=== PATIENT | female | born 1980 | race Caucasian/White ===

== ENCOUNTER 2018-05-13 15:32 | Outpatient (CLI) | payer MEDICAID ==
--- NOTE | 2018-05-13 16:50 | ULT ---
PELVIC SONOGRAM TRANSABDOMINAL AND TRANSVAGINAL IMAGING WITH DUPLEX EVALUATION: 05/13/18 HISTORY: Pelvic pain. FINDINGS: Urinary bladder is unremarkable. Uterus has a heterogeneous echotexture and is 8.8 cm. Endometrium is 0.4 cm. Minimal free fluid. The right ovary is 2.9 cm and the left 2.6 cm. Each has a normal appearance with good color and spect ral doppler flow. IMPRESSION: Normal pelvic sonogram. POS: TINY
== END 2018-05-13 15:33 | disposition home or self-care (01) ==
LOC: BICULT 15:32
PROVIDERS: ATTEND Family Medicine
DX: R10.2 Pelvic and perineal pain (principal)
CPT/HCPCS: 76856

== ENCOUNTER 2020-07-23 16:26 | Inpatient (IN) | payer SELFPAY ==
[2020-07-23] MEDS ORDERED: Ondansetron PF 4 MG/2 ML Vial IVP PRN (21:44)
[2020-07-23] MEDS ORDERED: Ondansetron ODT 4 MG TAB PO PRN (21:44)
[2020-07-23] MEDS ORDERED: hydrALAZINE 20 MG/ML VIAL SLOW IVP PRN (21:44)
[2020-07-23] MEDS ORDERED: Acetaminophen 500 MG TAB PO PRN (21:44)
[2020-07-23] MEDS ORDERED: Famotidine 20 MG TAB PO SCH ×2 (22:00→22:15)
[2020-07-23] MEDS ORDERED: Atorvastatin Calcium 40 MG TAB PO SCH ×2 (22:00→22:15)
[2020-07-23] MEDS ORDERED: Warfarin Sodium 10 MG TAB PO SCH ×2 (22:00→22:15)
[2020-07-23 22:03] VITALS: BMI 32.3
[2020-07-23] MEDS ORDERED: Famotidine 20 MG TAB ONE (22:19)
[2020-07-24 05:02] LABS: #Basophils 0.1 thou/uL (0.0-0.2); #Eosinphils 0.4 thou/uL (0.0-0.7); #Lymphocytes 2.4 thou/uL (1.20-3.40); #Monocytes 0.8 thou/uL (0.11-0.59); #Neutrophils 4.4 thou/uL (1.40-6.50); %Basophils 0.7 % (0.0-1.0); %Eosinophils 4.6 % (0.0-10.0); %Lymphocytes 29.7 % (21.0-51.0); %Neutrophils 54.9 % (42.0-75.0); Hemoglobin 13.8 g/dL (12.0-16.0); Mean Corpuscular HGB CONC 32.5 g/dL (32.0-36.0); Mean Corpuscular Hemoglobin 29.7 pg (27.0-31.0); Mean Corpuscular Volume 91.2 fL (78.0-98.0); Mean Platelet Volume 6.4 fL (7.4-10.4); Platelet Count 323 thou/uL (130-400); RBC Distribution Width 12.8 % (11.5-14.5); Red Blood Cell (RBC) Count 4.64 mill/uL (4.20-5.40)
[2020-07-24 05:23] LABS: ALT (SGPT) 12 U/L (8-55); AST (SGOT) 13 U/L (5-34); Albumin 3.4 g/dL (3.5-5.0); Alkaline Phosphatase 59 U/L (40-110); Anion Gap 12 mmol/L (10-20); BUN (Urea Nitrogen) 17 mg/dL (7.0-18.7); Bilirubin, Total 0.2 mg/dL (0.2-1.2); Calc. Creatinine Clearance 125 mL/min (70-130); Calcium 8.9 mg/dL (7.8-10.44); Carbon Dioxide 22 mmol/L (22-29); Cardiac Risk 4.4 (Less than 4.5); Chloride 105 mmol/L (98-107); Cholesterol 218 mg/dl (< 200 Desired); Globulin 2.9 g/dL (2.4-3.5); Glucose 104 mg/dL (70-105); HDL Cholesterol 50 mg/dL (>60 Neg Risk); LDL Cholesterol, Calculated 147 mg/dL; Potassium 4.4 mmol/L (3.5-5.1); Protein, Total 6.3 g/dL (6.0-8.3); Sodium 135 mmol/L (136-145); Triglycerides 104 mg/dL (Less than 150)
[2020-07-24 07:02] LABS: SARS-CoV-2 PCR by NAA Not Detected (NotDetected)
[2020-07-24] MEDS ORDERED: Aspirin Chewable 81 MG TAB ONE (08:01)
[2020-07-24] MEDS ORDERED: Famotidine 20 MG TAB ONE (08:01)
[2020-07-24] MEDS: Aspirin 81 mg Enteric Coated Tablet PO SCH (08:04)
[2020-07-24] MEDS: Famotidine 20 MG TAB PO SCH ×2 (08:04→21:26)
[2020-07-24] MEDS ORDERED: Lorazepam 2 MG/ML VIAL SLOW IVP SCH (13:00)
[2020-07-24] MEDS ORDERED: Warfarin Sodium 10 MG TAB PO SCH (17:00)
[2020-07-24] MEDS ORDERED: Atorvastatin Calcium 40 MG TAB PO SCH (21:00)
[2020-07-25 06:33] LABS: INR-International Normal Ratio 2.1; Prothrombin Time 23.7 sec (12.0-14.7)
[2020-07-25 07:45] VITALS: TEMP 98.1
[2020-07-25] MEDS: Aspirin 81 mg Enteric Coated Tablet PO SCH (08:13)
[2020-07-25] MEDS: Famotidine 20 MG TAB PO SCH (08:13)
[2020-07-25 11:34] VITALS: BP 109/77
== END 2020-07-25 12:15 | disposition home or self-care (01) | DRG 69 ==
LOC: ERS 16:26 → 2SE 16:56 → ERHOLD 17:25 → OBSVTOIN 21:44 → 2SE 07-24 12:15
PROVIDERS: ADMIT Family Medicine; ATTEND Student in an Organized Health Care Education/Training Program
DX: G45.9 Transient cerebral ischemic attack, unspecified (principal); Z20.822 Contact with and (suspected) exposure to COVID-19; R79.1 Abnormal coagulation profile; I10 Essential (primary) hypertension; F31.9 Bipolar disorder, unspecified; F15.10 Other stimulant abuse, uncomplicated; F12.10 Cannabis abuse, uncomplicated; Z91.14 Patient's other noncompliance with medication regimen; Z86.718 Personal history of other venous thrombosis and embolism; Z86.711 Personal history of pulmonary embolism; Z79.899 Other long term (current) drug therapy; Z79.01 Long term (current) use of anticoagulants; Z98.51 Tubal ligation status
CPT/HCPCS: 36415; 36416; 70551; 80053; 80061; 85025; 85610; 87635; 93005; 93306; G0378; J2060; Q0162; U0003; U0005

== ENCOUNTER 2021-04-27 19:49 | Emergency (ER) | payer MEDICAID, SELFPAY ==
[2021-04-27] MEDS ORDERED: Boostrix 0.5 ML (Tdap) VIAL ONE ×2 (21:30→21:36)
== END 2021-04-27 21:36 | disposition home or self-care (01) ==
LOC: ERS 19:49
DX: S31.41XA Laceration without foreign body of vagina and vulva, initial encounter (principal); F17.210 Nicotine dependence, cigarettes, uncomplicated; Z79.899 Other long term (current) drug therapy
CPT/HCPCS: 12001; 90471; 90715

== ENCOUNTER 2021-08-17 09:59 | Emergency (ER) | payer MEDICAID | END 2021-08-17 12:00 | disposition home or self-care (01) | LOC: ERS 09:59 | DX: K04.7 Periapical abscess without sinus (principal); K03.81 Cracked tooth; K02.9 Dental caries, unspecified; F17.210 Nicotine dependence, cigarettes, uncomplicated; Z86.711 Personal history of pulmonary embolism; Z86.73 Personal history of transient ischemic attack (TIA), and cerebral infarction without residual deficits; Z79.82 Long term (current) use of aspirin; Z79.01 Long term (current) use of anticoagulants; Z79.899 Other long term (current) drug therapy | CPT/HCPCS: 99282 ==

== ENCOUNTER 2022-07-09 02:38 | Emergency (ER) | payer SELFPAY ==
[2022-07-09 03:08] LABS: Bilirubin Negative (Negative); Blood, Urine Negative (Negative); Clarity Clear (Clear); Glucose, Urine (Dipstick) Normal (Negative); Ketone, Urine Negative (Negative); Leukocyte Negative Leu/uL (Negative); Nitrite Negative (Negative); Protein, Urine (Dipstick) Negative (Neg-Trace); Specific Gravity, Urine 1.023 (1.002-1.036); Urobilinogen Normal mg/dL (Less than 2)
[2022-07-09 03:10] LABS: Pregnancy Test - Urine (BHCG) Negative (Negative); Pregu Control Background? CLEAR/WHITE (CLR/WHITE); Pregu Control Bar Appear? YES (CONTROL BAR); Specific Gravity 1.023 (1.002-1.036)
[2022-07-09] MEDS ORDERED: cefTRIAXone (ROCEPHIN) 500 MG VIAL ONE (04:00)
[2022-07-09 13:00] LABS: GC by PCR, Vaginal Swab DETECTED (NotDetected)
== END 2022-07-09 04:22 | disposition home or self-care (01) ==
LOC: ERS 02:38
DX: A64 Unspecified sexually transmitted disease (principal)
CPT/HCPCS: 81003; 81025; 87591; 96372; 99283; J0696